=== PATIENT | male | born 1930 | race Caucasian/White ===

== ENCOUNTER 2017-12-13 18:09 | Emergency (ER) | payer MEDICARE, BC ==
--- NOTE | 2017-12-13 18:24 | ED ---
Lower Extremity Injury HPI <Cornel Lafleur - Last Filed: 12/13/17 20:04> - General Source: RN notes reviewed, old records reviewed <Estefania Juarez - Last Filed: 12/13/17 20:24> - General Stated Complaint: Leg pain Time Seen by Provider: 12/13/17 18:11 - History of Present Illness Initial Comments: This Patient is a 87-year-old male with a recent history of left leg DVT was treated and registered hospital with IV heparin and switched to L Reed. Patient reports he was discharged from the hospital yesterday. Today he arrives complaining of worsening pain within the left leg. He reports that the swelling has improved. Patient denies any trauma to the knee or leg. Denies any chest pain or shortness of breath. (Estefania Juarez) - Related Data Previous Rx's Medication Instructions Recorded Acetaminophen-Codeine 300-30mg 1 tab PO Q6H PRN 3 Days #12 tablet 12/13/17 [Tylenol w/codeine #3] Allergies Allergy/AdvReac Type Severity Reaction Status Date / Time Penicillins Allergy Unknown Verified 12/13/17 18:22 Review of Systems ROS Other: All systems not noted in ROS Statement are negative. <Cornel Lafleur - Last Filed: 12/13/17 20:04> ROS Other: All systems not noted in ROS Statement are negative. <Estefania Juarez - Last Filed: 12/13/17 20:24> ROS Statement: Those systems with pertinent positive or pertinent negative responses have been documented in the HPI. General Exam <MiquelCornel - Last Filed: 12/13/17 20:04> General appearance: alert, in no apparent distress Head exam: Present: atraumatic, normocephalic, normal inspection Eye exam: Present: normal appearance, PERRL, EOMI. Absent: scleral icterus, conjunctival injection, periorbital swelling ENT exam: Present: normal exam, mucous membranes moist Neck exam: Present: normal inspection. Absent: tenderness, meningismus, lymphadenopathy Respiratory exam: Present: normal lung sounds bilaterally. Absent: respiratory distress, wheezes, rales, rhonchi, stridor Left Knee exam: Present: tenderness (Patient has significant tenderness over the medial posterior knee.), swelling (Patient has pain and tenderness swelling over the knee. Pain with range of motion of flexion of the knee.). Absent: normal inspection, full ROM Lower Leg exam: Present: tenderness, swelling. Absent: normal inspection Ankle exam: Present: full ROM Foot/Toe exam: Present: full ROM, swelling. Absent: normal inspection Neurovascular tendon exam: Present: no vascular compromise Gait: observed and normal Back exam: Present: normal inspection Neurological exam: Present: alert, oriented X3, CN II-XII intact Psychiatric exam: Present: normal affect, normal mood Skin exam: Present: warm, dry, intact, normal color. Absent: rash <Estefania Juarez - Last Filed: 12/13/17 20:24> - General Exam Comments Initial Comments: This is an 87-year-old male. Alert and oriented. No significant distress. ( Estefania Juarez) Course <Cornel Lafleur - Last Filed: 12/13/17 20:04> <Estefania Juarez - Last Filed: 12/13/17 20:24> Vital Signs 12/13/17 12/13/17 18:22 20:08 Temperature 97.4 F L 97.9 F Pulse Rate 74 68 Respiratory 18 18 Rate Blood Pressure 111/57 121/60 O2 Sat by Pulse 94 L 97 Oximetry - Reevaluation(s) Reevaluation #1: 12/13/17 20:04 PA supervision: I did personally do a [id number] evaluation patient did discuss the findings with the patient I also examined the patient. We did discuss the findings with patient family members. I do agree with the assessment and plan. The patient will follow with orthopedics outpatient. I did review the imaging does show deep beginnings of resolution of the clot (Cornel Lafleur) Medical Decision Making <Cornel Lafleur - Last Filed: 12/13/17 20:04> - Radiology Data Radiology results: report reviewed <Estefania Juarez - Last Filed: 12/13/17 20:24> - Medical Decision Making This Patient is an 87-year-old female chief complaint of left leg and knee pain. Worse with range of motion. Recently admitted for DVT and started on L Reed. They report that the swelling is diminishing but he still complains of severe pain within the knee with range of motion. At this time we performed x- rays and ultrasound. The looks like there is resolving DVT within the femoral vein. There is partial compressibility of the femoral vein. Patient's ultrasound does show a very large fluid collection within the posterior medial knee consistent with Guthrie's cyst. Measuring 14 cm x 8 cm x 3 7 m. Patient has normal pulses and sensation within the distal foot. Range of motion of the toes and foot and ankle noted. Family informed also of x-ray results showing pretty significant degenerative disease. Patient has seen Dr. Jolley, the orthopedist in the past. I recommended that they follow up with Dr. Jolley or other color specialist to have the Guthrie's cyst drained. I discussed the resolution of the blood clot. They do have an appointment with Dr. Rebollar. Again he did examine he has no chest pain or shortness of breath. Patient at this time was pain management was glued given was Tylenol codeine. I discussed that he can ambulate with his hand-held crutches that he is aren't been prescribed. I discussed return parameters. Family understands to plan will comply. Return parameters were discussed. Plan to schedule appointment with Dr. Jolley either orthopedics next week. (Estefania Juarez) - Radiology Data There is a left knee after a plasty with femoral compartment appropriately appointments tibial component however there is varus deformity. Surrounding heterotopic ossification. Soft tissue swelling is evidence of been the most pronounced over the medial femoral condyle and distal femur. Surgical melani noted at this level. Extensive vascular calcifications noted. No evidence of acute fracture dislocation. Mild left femoral partially compressible thrombus extending to the distal femoral vein related to an incompletely occluding DVT. Therefore resolving thrombus given the provided history of recent diagnosis and current blood thinner use it is suspected. There is a large popliteal fluid collection that is mildly complex most likely related to a Guthrie cyst however the Patient notes pain at this location and therefore nonemergent percutaneous drainage could be performed for relief. (Estefania Juarez) Disposition <Cornel Lafleur - Last Filed: 12/13/17 20:04> Is patient prescribed a controlled substance at d/c from ED?: Yes When asked, does pt state using other controlled substances?: Yes If prescribed controlled substance>3 days was MAPS reviewed?: Prescribed <3 Days If opioid is for acute pain is fill amount 7 days or less?: Yes If Rx opioid, was Start Talking consent form obtained?: Yes Time of Disposition: 20:10 <Estefania Juarez - Last Filed: 12/13/17 20:24> Clinical Impression: Guthrie's cyst of knee, Chronic deep vein thrombosis (DVT) Disposition: HOME SELF-CARE Condition: Good Instructions: Deep Venous Thrombosis (ED), Bakers Cyst (ED) Additional Instructions: Patient advised to follow-up with color specialist for likely drainage of the cyst within the knee. Patient should take the pain medicine as prescribed. Follow-up with your scheduled appointments with Dr. Marshall and primary care physician. Patient should return to the emergency department if any alarming signs or symptoms occur. Ambulate with crutches. Prescriptions: Acetaminophen-Codeine 300-30mg [Tylenol w/codeine #3] 1 tab PO Q6H PRN 3 Days # 12 tablet PRN Reason: Pain Referrals: Jouse Eastman MD [Primary Care Provider] - 1-2 days
[2017-12-13 18:25] VITALS: RESP 18
[2017-12-13] MEDS ORDERED: ACET/COD 300 MG/30 MG STARTER PACK 6 TAB BTL PO STA (18:35)
--- NOTE | 2017-12-13 19:13 | US ---
EXAMINATION TYPE: US venous doppler duplex LE LT DATE OF EXAM: 12/13/2017 7:03 PM COMPARISON: NONE CLINICAL HISTORY: Pain. Pt states posterior left knee and calf pain/ pt states recent diagnosis of DV T left leg at outside facility/ currently on blood thinners/ Pt also states history of DVT left leg b efore recent diagnosis SIDE PERFORMED: Left TECHNIQUE: The lower extremity deep venous system is examined utilizing real time linear array sonog toby with graded compression, doppler sonography and color-flow sonography. VESSELS IMAGED: External Iliac Vein (EIV) Common Femoral Vein Deep Femoral Vein Greater Saphenous Vein * Femoral Vein Popliteal Vein Small Saphenous Vein * Proximal Calf Veins (* superficial vessels) Grayscale, color doppler, spectral doppler imaging performed of the deep veins of the left lower ex tremity. There is normal flow, compressibility, vascular waveforms. Left Leg: Thrombus of indeterminant age within duplicate vein at mid femoral vein and partial compre ssion at mid femoral vein and distal femoral vein/ Proximal calf veins unable to be visualized due to large complex fluid collection beginning at posterior knee, extending to mid posterior calf= 14.1 x 3.1 x 8.4 cm approx in size/ pt states pain at this site IMPRESSION: 1. Left mid femoral partially compressible thrombus extending into the distal femoral vein relating t o an incompletely occluding deep venous thrombosis. Therefore resolving thrombosis given the provided history of recent diagnosis of deep venous thrombosis and current blood thinner usage is suspected. 2. Large popliteal fluid collection that is mildly complex most commonly related to a Guthrie's cyst. H owever the patient notes pain at this location and therefore nonemergent percutaneous drainage could be performed for relief.
--- NOTE | 2017-12-13 19:36 | XR ---
EXAMINATION TYPE: XR knee complete LT DATE OF EXAM: 12/13/2017 CLINICAL HISTORY: Left knee pain and swelling with multiple prior surgeries. TECHNIQUE: Three views of the left knee are obtained. COMPARISON: None. 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 Surrounding heterotopic ossification. Soft tissue swelling is also evident of the knee most pronounced over the medial femoral condyle and distal media l femur. Surgical melani are noted at this level. Extensive vascular calcifications are noted. There is no evidence of acute fracture or dislocation. IMPRESSION: No acute fracture or dislocation of the left knee. Likely chronic findings as described a yuri however no comparison radiograph's are available for comparison.
[2017-12-13 20:10] VITALS: BP 121/60; PULSE 68; TEMP 97.9
== END 2017-12-13 20:22 | disposition home or self-care (01) ==
LOC: EC 18:09
DX: M71.22 Synovial cyst of popliteal space [Baker], left knee (principal); I82.512 Chronic embolism and thrombosis of left femoral vein; Z88.0 Allergy status to penicillin
CPT/HCPCS: 99284